=== PATIENT | female | born 1945 | race Caucasian/White ===

== ENCOUNTER → 2016-12-29 16:48 | Outpatient (CLI) | payer MEDICARE ==
[~2016-12-29 16:48] MED LIST: BAYER CHEWABLE81 MG PO; CARAFATE1 G PO; ESTRACE2 MG PO; FUROSEMIDE20 MG PO; LIBRAX CAPSULE1 CAP PO; LOPRESSOR25 MG PO; MINERAL OIL25 ML PO; MIRALAX17 GM PO; NEXIUM20 MG PO; POTASSIUM CHLO10 ME1 PO; STOOL SOFTENER100 M1 PO; ULTRAM50 MG PO
== END | disposition home or self-care (01) ==
LOC: D.MAMMO 11:00
DX: Z12.31 Encounter for screening mammogram for malignant neoplasm of breast (principal)

== ENCOUNTER → 2017-01-22 14:34 | Outpatient (CLI) | payer MEDICARE | END | disposition home or self-care (01) | LOC: D.MAMMO 09:00 | DX: R92.2 Inconclusive mammogram (principal) ==

== ENCOUNTER → 2017-03-02 10:32 | Outpatient (CLI) | payer MEDICARE | END | disposition home or self-care (01) | LOC: D.US 10:32 | DX: N64.4 Mastodynia (principal) ==

== ENCOUNTER 2019-01-23 08:00 | Outpatient (CLI) | payer MEDICARE | END 2019-01-23 23:59 | disposition home or self-care (01) | LOC: D.MAMMO 08:00 | PROVIDERS: ATTEND Family Medicine | DX: Z12.31 Encounter for screening mammogram for malignant neoplasm of breast (principal) ==

== ENCOUNTER 2019-02-21 08:00 | Outpatient (CLI) | payer MEDICARE | END 2019-02-21 12:00 | disposition home or self-care (01) | LOC: D.MAMMO 08:00 | PROVIDERS: ATTEND Family Medicine | DX: R92.8 Other abnormal and inconclusive findings on diagnostic imaging of breast (principal) ==

== ENCOUNTER → 2019-08-14 10:21 | Outpatient (CLI) | payer MEDICARE ==
[~2019-08-14 10:21] MED LIST changes: +BUPROPION HCL75 MG PO; +MOBIC7.5 MG PO; +TRAZODONE HCL150 MG PO
== END | disposition home or self-care (01) ==
LOC: D.HCCECHO 10:21
PROVIDERS: ATTEND Internal Medicine Cardiovascular Disease
DX: I25.10 Atherosclerotic heart disease of native coronary artery without angina pectoris (principal)

== ENCOUNTER 2019-08-16 18:45 | Observation (INO) | payer MEDICARE ==
[~2019-08-16] VITALS: Ht 170.2 cm; Wt 71.8 kg
--- NOTE | ~2019-08-16 | HEMODYNAMI ---
PATIENT:SANDOVAL STALLWORTH MEDICAL RECORD: [id number] : 47 LOCATION:[facility] D.[address] [facility]# [id number] ADMISSION DATE: 08/16/19 Generatedon:08/17/201913:37 Patient name: SANDOVAL STALLWORTH Patient #: [id number] : 1945 Date of study: 08/17/2019 Page: Of Hemodynamic Procedure Report Patient Data Patient Demographics Procedure consent was obtained First Name: SANDOVAL Gender: Female Last Name: BASIM : 1945 [facility] Initial: LEYLA Age: 74 year(s) Patient #: [id number] Race: Unknown SSN: [id number] Additional ID: [id number] Contact details Address: [address] [place] [address] [address] State: [place] City: [place] Zip code: [address] Past Medical History Allergies Allergen Reaction Date Comments Reported Other allergy 08/17/2019 Statin, Naproxen Admission Admission Data Admission Date: 08/16/2019 Admission Time: 20:13 Arrival Date: 08/17/2019 Arrival Time: 0:00 Admit Source: Other Insurance Payor: Medicare Room #: D.2115 [facility] #: [id number] Height (in.): 68 BSA: 1.85 (m2) Height (cm.): 172.72 BMI: 24.02 (kg/m2) Weight (lbs.): 158 Weight (kg.): 71.67 Lab Results Lab Result Date: 08/17/2019 Lab Result Time: 0:00 Biochemistry Name Units Result Min Max BUN mg/dl 13 --(--*-)-- 7 18 Creatinine mg/dl 0.8 --(-*--)-- 0.6 1.3 eGFR ml/min 73.69842 *-(----)-- 90 120 NONAFRICAN CBC Name Units Result Min Max Hemoglobin g/dl 12.2 *-(----)-- 13.5 17.5 Procedure Procedure Types Cath Procedure Diagnostic Procedure [facility] w/Coronaries Aortic Root Angiography Sedation Charges Moderate Sedation up to 30 minutes Peripheral Cath Diagnostic Procedure Abd/Extremity Aortagram Procedure Description Procedure Date Procedure Date: 08/17/2019 Procedure Start Time: 9:58 Procedure End Time: 10:18 Procedure Staff Name Function Montrell Guzman MD Performing Physician Geraldo Grace RT Monitor Mile Karimi RT Scrub Kia Hill RN Nurse Indication Fatigue Abnormal stress perfusion study with ischemia in the inferior wall Procedure Data Cath Procedure Fluoroscopy Diagnostic fluoroscopy Total fluoroscopy Time: 4 time: 4 min min Diagnostic fluoroscopy Total fluoroscopy dose: 429 dose: 429 mGy mGy Contrast Material Contrast Material Type Amount (ml) Isovue 300 84 Entry Location Entry Primary Successful Side Size Upsize Upsize Entry Closure Succes sful Closure Location (Fr) 1 (Fr) 2 (Fr) Remarks Device Remarks Femoral Right 5 Fr Exoseal artery Estimated blood loss: 10 ml Diagnostic catheters Device Type Used For End Catheter Placement MULTIPACK JL 4.0 5Fr Procedure catheter MULTIPACK 3DRC 5Fr Procedure catheter MULTIPACK Pigtail 5 Fr Ventriculography catheter Procedure Complications No complications Procedure Medications Medication Administration Route Dosage 0.9% NaCl I.V. 100 ml/hr Oxygen etCO2 Nasal cannula 2 l/min Lidocaine 2% added to field 20 Heparin Flush Bag added to field 2 bags (1000units/500ml NS) Versed I.V. 2 mg Fentanyl I.V. 50 mcg Fentanyl I.V. 50 mcg Hemodynamics Rest BSA: 1.85 (m2) HGB: 12.2 (g/dl) O2 Consumption: Estimated: 162.53 (ml/min) O2 Co nsumption indexed: Estimated:87.85 (ml/min/m) Heart Rate: 60 (bpm) Pressure Samples Time Site Value (mmHg) Purpose Heart Use Rate(bpm) 10:08 LV 120/0,9 Snapshot 60 10:09 LV 137/-3,22 Pullback 58 10:09 AO 146/45(85) Pullback 58 Gradients Valve Time Site 1 Site 2 Mean SEP/DFP Peak To Heart Use (mmHg) (sec/min) Peak Rate (mmHg) (bpm) Aortic 10:09 LV AO 0 21 0 58 137/-3,22 146/45(85) Calculations Valve P-P Mean Valve Index Valve Source Name Gradient Area Flow (cm2) Aortic 0 0 0 0 Snapshots Pre Cath Intra NCS Post Cath Vital Signs Time Heart Resp SPO2 etCO2 NIBP (mmHg) Rhythm Pain Sedation Rate (ipm) (%) (mmHg) Status Level (bpm) 9:45:58 57 22 97 36.8 144/78(122) SB 0 (11) 10(A) , No pain 9:50:16 61 13 97 14 122/69(92) NSR 0 (11) 10(A) , No pain 9:54:28 55 11 96 33 117/63(94) SB 0 (11) 10(A) , No pain 9:58:38 55 14 96 26.2 125/62(88) SB 0 (11) 10(A) , No pain 10:02:50 58 10 96 10.5 121/68(85) SB 0 (11) 9(A) , No pain 10:07:02 55 15 90 11.2 127/63(85) SB 0 (11) 9(A) , No pain 10:11:16 56 15 87 15.7 123/62(88) SB 0 (11) 10(A) , No pain 10:15:26 55 9 88 29.2 131/70(94) SB 0 (11) 10(A) , No pain Medications Time Medication Route Dose Verified Delivered Reason Notes Eff ectiveness by by 9:39:33 0.9% NaCl I.V. 100 Montrell Kia used for ml/hr Thomas Hill revenue enforcement agent 9:39:40 Oxygen etCO2 2 Montrell Kia used for Nasal l/min Thomas Hill procedure cannula RN 9:39:45 Lidocaine 2% added 20ml Montrell Montrell for local to vial Thomas Guzman MD anesthetic field 9:39:50 Heparin Flush added 2 Montrell Montrell used for Bag to bags Thomas Guzman MD procedure (1000units/500ml field NS) 9:57:29 Versed I.V. 2 mg Montrell Kia for Thomas Hill sedation RN 9:57:36 Fentanyl I.V. 50 Montrell Kia for mcg Thomas Hill sedation RN 10:01:18 Fentanyl I.V. 50 Montrell Kia for mcg Thomas Hill sedation club former Log Time Note 9:31:17 Informed consent obtained and on chart 9:33:20 Arrival Date: 08/17/2019 12:00:00 AM 9:33:37 Admit Source: Other 9:33:46 Insurance Payor : Medicare 9:34:17 Patient Height : 68 inches 9:34:21 Patient Weight : 158 lbs 9:34:53 Lab Result : eGFR NONAFRICAN 73.41282 ml/min 9:34:53 Lab Result : Hemoglobin 12.2 g/dl 9::53 Lab Result : BUN 13 mg/dl 9:34:53 Lab Result : Creatinine 0.8 mg/dl 9:35:55 Indication : Fatigue 9:36:19 Indication : Abnormal stress perfusion study with ischemia in the inferior wall 9:36:36 Procedure Status Urgent Heart Cath (IP). 9:36:40 Mile SOTELO(R) (CV) sent for patient. Start room use. 9:36:42 Time tracking: Regular hours (M-F 7:00 - 5:00) 9:36:47 Plan of Care:Hemodynamics will remain stable., Cardiac rhythm will remain stable., Comfort level will be maintained., Respiratory function will remain adequate., Patient/ family verbilizes understanding of procedure., Procedure tolerated without complication., Recovers from procedure without complications.. 9:36:53 Patient received from Med II to CCL 1 Alert and oriented. Tansferred to table in Supine position. 9:36:55 Correct patient and procedure confirmed by team. 9:36:55 Warm blankets applied, and michaela hugger turned on for patient comfort. 9:37:06 H&P Date Dictated: 08/10/2019 Within 30 days and on chart., H&P Addendum completed by physician on day of procedure. (MUST COMPLETE FOR ALL OUTPATIENTS). 9:37:08 Pre-procedure instructions explained to patient. 9:37:11 Family unavailable. 9:37:14 Patient NPO since Midnight. 9:37:43 Patient allergic to Other allergyStatin, Naproxen 9:37:46 Is the patient allergic to Iodine/contrast media? No. 9:37:49 Was the patient premedicated? Yes 9:37:50 Is patient on blood thinner?No 9:37:52 Patient diabetic? No. 9:38:00 Snore? Yes 9:38:02 Sleep apnea? No 9:38:08 Airway obstruction? Yes COPD 9:38:15 Dentures? Yes in tight 9:38:18 Patient pain scale 0/10 ?. 9:38:28 IV patent on arrival in left forearm with 0.9% NaCl at O. 9:38:31 Lab results completed and on chart. 9:38:47 Stress Test: yes; abnormal inferior wall 9:38:56 Right Radial & Right Groin area was prepped with chlora-prep and draped in sterile fashion 9:39:01 Sharps counted by scrub and verified by R.N. 9:39:01 Alarms reviewed by R. N. 9:39:33 0.9% NaCl 100 ml/hr I.V. was administered by Kia Hill RN; used for procedure; Verbal order read back and verified. 9:39:40 Oxygen 2 l/min etCO2 Nasal cannula was administered by Kia Hill RN; used for procedure; Verbal order read back and verified. 9:39:45 Lidocaine 2% 20ml vial added to field was administered by Montrell Guzman MD; for local anesthetic; Verbal order read back and verified. 9:39:50 Heparin Flush Bag (1000units/500ml NS) 2 bags added to field was administered by Montrell Guzman MD; used for procedure; Verbal order read back and verified. 9:44:58 Vital chart was started 9:56:46 Physician arrived 9:56:47 Final Timeout: patient, procedure, and site verified with staff and physician. All members of the team are in agreement. 9:56:47 --------ALL STOP TIME OUT------ 9:56:49 Right groin site verified by team. 9:56:54 Fire Safety Assessment: A--An alcohol-based skin anteseptic being used preoperatively., C--Open oxygen or nitrous oxide is being used., D--An ESU, laser, or fiber-optic light is being used. 9:57:04 Physical assessment completed. ASA score P 3 - A patient with severe systemic disease as per Montrell Guzman MD. 9:57:07 2) 60-89 Mildly reduced kidney function, and other findings (as for stage 1) point to kidney disease. 9:57:12 Maximum allowable contrast dose (3.7 X eGFR X 0.75)205 ml. 9:57:17 Sedation plan: IV Moderate Sedation Medication:Versed, Fentanyl 9:57:21 Use device set Femoral Dx 9:57:29 Versed 2 mg I.V. was administered by Kia Hill RN; for sedation; Verbal order read back and verified. 9:57:36 Fentanyl 50 mcg I.V. was administered by Kia Hill RN; for sedation; Verbal order read back and verified. 9:58:26 Full Disclosure recording started 9:58:26 Procedure started. 9:58:44 Local anesthetic to right femoral artery with Lidocaine 2% by Montrell Guzman MD.INITIAL ACCESS ONLY 9:58:45 ACIST Syringe (71445) opened to sterile field. 9:58:46 Medline Cath Pack ([id number]) opened to sterile field. 9:58:46 Bag Decanter (2002S) opened to sterile field. 9:58:48 ACIST Manifold (14790) opened to sterile field. 9:58:48 ACIST Hand Control (06321) opened to sterile field. 9:58:49 DIAGNOSTIC Multipack 5Fr catheter set (ZS9507) opened to sterile field. 9:58:51 SHEATH 5FR [place] (USC196) opened to sterile field. 9:58:52 EMERALD Guide Wire (836-356) opened to sterile field. 9:59:15 A 5 Fr sheath was inserted into the Right Femoral artery 10:01:18 Fentanyl 50 mcg I.V. was administered by Kia Hill RN; for sedation; Verbal order read back and verified. 10:02:46 A MULTIPACK JL 4.0 5Fr catheter was advanced over the wire and used for Procedure. 10:02:48 LCA angiography performed. 10:03:12 Catheter removed. 10:03:19 A MULTIPACK 3DRC 5Fr catheter was advanced over the wire and used for Procedure. 10:03:59 RCA angiography performed. 10:04:58 Catheter removed. 10:05:28 A MULTIPACK Pigtail 5 Fr catheter was advanced over the wire and used for Ventriculography. 10:05:40 Zero performed for pressure channel P1 10:06:01 Zero performed for pressure channel P1 10:08:37 LV hemodynamics recorded. 10:08:42 LV gram done using LEE 10:09:00 EF : 50 % 10:09:22 Aortic Root visualized 10:13:40 EXOSEAL 5Fr (EX500) opened to sterile field. 10:13:42 Tegaderm 4 x 4 (1626W) opened to sterile field. 10:13:50 Catheter removed. 10:14:04 Sheath removed intact; hemostasis achieved with Exoseal to the Right Femoral artery. 10:14:07 Procedure ended.(Physican Out) 10:14:18 Fluoroscopy time 04.00 minutes. 10:14:22 Fluoroscopy dose: 429 mGy 10:14:22 Flurop Dose total: 429 10:14:30 Dose Area Product 10375 mGy/cm. 10:14:35 Contrast amount:Isovue 300 84ml. 10:14:38 Maximum allowable dose exceeded? No. 10:14:39 Sharps counted by scrub and verified by R.N. 10:14:42 Insertion/operative site no bleeding no hematoma. 10:14:50 Post-procedure physical assessment completed. ASA score P 2 - A patient with mild systemic disease as per Montrell Guzman MD. 10:14:52 Post procedure rhythm: unchanged. 10:14:55 Estimated blood loss: 10 ml 10:14:57 Post procedure instruction explained to patient.Patient verbalizes understanding. 10:15:28 Procedure type changed to Cath procedure, Diagnostic procedure, LHC, LHC w/Coronaries, Aortic Root Angiography, Sedation Charges, Moderate Sedation up to 30 minutes, Peripheral Cath Diagnostic Procedure, Abd/Extremity, Aortagram 10:17:01 Procedure and supply charges have been captured, reviewed, submitted and are correct. 10:17:49 Procedure Complication : No complications 10:17:54 Vital chart was stopped 10:17:56 Operative report dictated upon procedure completion. 10:17:58 See physician's report for complete and final results. 10:18:05 Report given to Med II. 10:18:09 Patient transfered to Med II with Bed. 10:18:11 Full Disclosure recording stopped 10:18:11 Procedure ended. 10:18:16 End room use (Document Last) 10:18:42 End room use (Document Last) 10:19:52 End room use (Document Last) 13:34:48 LATE ENTRY 4.2.20. @ 1342-Abdominal Aortagram was performed @10:09:22- NOT AORTA ROOT GERALDO GRACE Device Usage Item Name Manufacture Quantity Catalog Hospital Part Current Minimal L ot# / Number Charge Number Stock Stock Serial# Code ACIST Acist 1 22018 [id number] [id number] 527698 20 Syringe Medical (91491) Systems Inc Bag Microtek 1 170900 38419 175046 5 Decanter Medical Inc. () Medline Medline 1 [id number] 577795 24131 803379 5 Cath Pack ([id number]) ACIST Hand Acist 1 91478 743086 810341 815692 5 Control Medical (06072) Systems Inc ACIST Acist 1 71134 295533 302054 239100 5 Manifold Medical (93738) Systems Inc DIAGNOSTIC Cardinal 1 PH5288 448719 80448 578720 30 Multipack Health 5Fr catheter set (JC4209) SHEATH 5FR Terumo 1 NIP505 554785 949399 465128 5 [place] (VQY901) EMERALD Cardinal 1 502455 725536 349841 609224 5 Guide Wire [facility] (502-053) MULTIPACK Cardinal 1 352718 5 JL 4.0 5Fr Health catheter MULTIPACK Cardinal 1 116105 5 3DRC 5Fr Health catheter MULTIPACK Cardinal 1 699825 5 Pigtail 5 Health Fr catheter EXOSEAL 5Fr Cardinal 1 EX500 776701 587847 897971 10 (EX500) Health Tegaderm 4 3M 1 1626W 217794 989849 461843 5 x 4 (1626W) Signature Audit [place] Stage Time Signature Unsigned Intra-Procedure 08/17/2019 Geraldo Grace 10:18:42 AM RT(R) Intra-Procedure 08/17/2019 Kia Hill 10:19:52 AM RN Intra-Procedure 08/17/2019 Montrell Guzman MD 10:20:19 AM 08/17/2019 1:33:38 PM Intra-Procedure 08/17/2019 Geraldo Grace 1:36:33 PM RT(R) Intra-Procedure 08/17/2019 Montrell Guzman MD 1:37:04 PM Signatures Performing Physician : Signature : Montrell Guzman MD Date : Time : Monitor : Geraldo Sanjay Signature : RT Date : Time : Nurse : Kia Sergio RN Signature : Date : Time : [place] [address] [place] [address]
[~2019-08-16 18:45] MED LIST changes: -BUPROPION HCL75 MG PO; -MOBIC7.5 MG PO; -TRAZODONE HCL150 MG PO
[2019-08-16] MEDS ORDERED: MOBIC7.5 MG PO (18:59)
[2019-08-16] MEDS ORDERED: TRAZODONE HCL150 MG PO (18:59)
[2019-08-16] MEDS ORDERED: BUPROPION HCL75 MG PO (19:00)
[2019-08-16 19:25] LABS: BASOPHILS 0.7 % (0-2); EOSINOPHILS 5.8 % (0-7); HEMATOCRIT 40.8 % (36.0-48.0); HEMOGLOBIN 13.7 g/dL (12-16); IMMATURE GRANULOCYTES 0.1 % (0-5); LYMPHOCYTES 36.9 % (15-50); MCH 34.9 pg (26.0-34.0); MCHC 33.6 g/dL (31.0-37.0); MCV 103.8 fL (80.0-100.0); MEAN PLATELET VOLUME 9.4 fL (7.4-10.4); MONOCYTES 8.1 % (2-11); NEUTROPHILS 48.4 % (40-80); RBC 3.93 10x6/uL (4.00-5.40); WBC 7.4 10x3/uL (4.8-10.8)
[2019-08-16 19:40] LABS: PLATELET COUNT 260 10x3/uL (130-400)
[2019-08-16 19:41] LABS: APTT 26.7 SECONDS (22.8-39.4); INR 0.91 (0.85-1.17); PROTIME 12.2 SECONDS (11.6-15.0)
[2019-08-16 19:45] LABS: CALC OSMOLALITY 278 mosm/kg (275-300); CALCIUM 8.7 mg/dL (8.5-10.1); CARBON DIOXIDE 27.8 mmol/L (21.0-32.0); CHLORIDE - SERUM 103 mmol/L (98-107); CREATININE - SERUM 0.9 mg/dL (0.6-1.3); GLUCOSE 104 mg/dL (74-106); POTASSIUM - SERUM 3.8 mmol/L (3.5-5.1); SODIUM 139 mmol/L (136-145); UREA NITROGEN 15 mg/dL (7-18); eGFR NON AFRICAN AMERICAN 65 mL/min (90-120)
[2019-08-16 19:47] VITALS: BP 149/99
[2019-08-16 19:57] LABS: ALBUMIN 3.4 g/dL (3.4-5.0); ALKALINE PHOSPHATASE 77 U/L (30-120); ALT (SGPT) 19 U/L (10-68); BILIRUBIN - TOTAL 0.29 mg/dL (0.2-1.3); CKMB 0.6 U/L (0.0-3.6); CREATINE KINASE 54 UL (21-215); MAGNESIUM - SERUM 2.1 mg/dL (1.8-2.4); PROTEIN - SERUM 7.2 g/dL (6.4-8.2); TROPONIN-I < 0.017 ng/mL (0.000-0.060)
[2019-08-16 23:04] LABS: CKMB 0.6 U/L (0.0-3.6); CREATINE KINASE 52 UL (21-215)
[2019-08-16 23:05] LABS: TROPONIN-I < 0.017 ng/mL (0.000-0.060)
[2019-08-17] VITALS (7 sets, daily range): BP systolic 117–161; BP diastolic 55–84; Ht 170.2 cm; Wt 71.8 kg
[2019-08-17 05:12] LABS: BASOPHILS 0.6 % (0-2); EOSINOPHILS 8.8 % (0-7); HEMOGLOBIN 12.2 g/dL (12-16); IMMATURE GRANULOCYTES 0.2 % (0-5); LYMPHOCYTES 41.5 % (15-50); MCH 34.5 pg (26.0-34.0); MCV 104.5 fL (80.0-100.0); MONOCYTES 10.7 % (2-11); NEUTROPHILS 38.2 % (40-80); PLATELET COUNT 236 10x3/uL (130-400); RBC 3.54 10x6/uL (4.00-5.40); RDW 12.1 % (11.5-14.5); WBC 6.6 10x3/uL (4.8-10.8)
[2019-08-17 05:43] LABS: ALBUMIN 2.9 g/dL (3.4-5.0); ALKALINE PHOSPHATASE 59 U/L (30-120); ALT (SGPT) 15 U/L (10-68); BILIRUBIN - TOTAL 0.38 mg/dL (0.2-1.3); CALC OSMOLALITY 276 mosm/kg (275-300); CALCIUM 7.9 mg/dL (8.5-10.1); CARBON DIOXIDE 26.2 mmol/L (21.0-32.0); CHLORIDE - SERUM 107 mmol/L (98-107); CKMB 0.4 U/L (0.0-3.6); CREATINE KINASE 41 UL (21-215); CREATININE - SERUM 0.8 mg/dL (0.6-1.3); GLUCOSE 79 mg/dL (74-106); MAGNESIUM - SERUM 1.8 mg/dL (1.8-2.4); PHOSPHOROUS 2.9 mg/dL (2.5-4.9); POTASSIUM - SERUM 3.5 mmol/L (3.5-5.1); PROTEIN - SERUM 5.8 g/dL (6.4-8.2); SODIUM 139 mmol/L (136-145); TROPONIN-I < 0.017 ng/mL (0.000-0.060); UREA NITROGEN 13 mg/dL (7-18); eGFR NON AFRICAN AMERICAN 74 mL/min (90-120)
[2019-08-17 07:20] LABS: CHOL - HDL RATIO 2.8 ratio (2.3-4.1); LDL-HDL RATIO 1.5 ratio (1.5-3.5)
--- NOTE | 2019-08-17 14:08 | MORECARE ---
CASE MANAGEMENT DISCHARGE SUMMARY PATIENT: SANDOVAL STALLWORTH LEYLA UNIT: [id number] ADM DATE: 08/16/19 AGE: 74 : 47 SEX: F ROOM/BED: D.8513 AUTHOR: JOAQUIN PINEDA PHYSICIAN: REFERRING PHYSICIAN: SALLIE HOGAN MD DATE OF SERVICE: 08/17/19 Discharge Plan Patient Name: SANDOVAL STALLWORTH Facility: [facility]:[place] : 1945 Planned Disposition: Home Anticipated Discharge Date: 08/17/19 Discharge Date: Expected LOS: 1 Initial Reviewer: [email or web address] Initial Review Date: 08/17/2019 Generated: 08/17/19 3:07 pm Patient Name: SANDOVAL STALLWORTH Page [phone] at 1408 All edits/amendments must be made on the electronic document DICTATION DATE: 08/17/19 140 PANTOGRAPH MACHINE SET UP OPERATOR: LYNNE 08/17/19 1407 RPT#: [id number] DC DATE: STATUS: ADM [facility] [address] [place] [address] END OF REPORT
== END 2019-08-17 14:15 | disposition home or self-care (01) ==
LOC: D.ER 18:45 → D.M2 20:13 → OBSVTIME 20:13 → D.M2 08-17 14:15
PROVIDERS: Family Medicine; Internal Medicine Cardiovascular Disease; ADMIT Family Medicine; ATTEND Family Medicine
DX: I20.0 Unstable angina (principal); R55 Syncope and collapse; R94.30 Abnormal result of cardiovascular function study, unspecified; M19.90 Unspecified osteoarthritis, unspecified site; J44.9 Chronic obstructive pulmonary disease, unspecified; F41.9 Anxiety disorder, unspecified; D75.89 Other specified diseases of blood and blood-forming organs; F17.200 Nicotine dependence, unspecified, uncomplicated

== ENCOUNTER → 2019-12-01 09:47 | Outpatient (CLI) | payer MEDICARE ==
[2019-08-17 01:05] VITALS: BMI 24.8
[~2019-12-01 09:47] MED LIST changes: +BUPROPION HCL75 MG PO; +MOBIC7.5 MG PO; +TRAZODONE HCL150 MG PO
== END | disposition home or self-care (01) ==
LOC: D.CT 09:47
PROVIDERS: ATTEND Internal Medicine Cardiovascular Disease
DX: R55 Syncope and collapse (principal); R42 Dizziness and giddiness

== ENCOUNTER 2020-02-09 19:11 | Emergency (ER) | payer MEDICARE ==
[~2020-02-09] VITALS: Ht 170.2 cm; Wt 72.7 kg
[2020-02-09 19:20] VITALS: Ht 170.2 cm; Wt 72.7 kg
[2020-02-09 19:56] LABS: BASOPHILS 0.5 % (0-2); EOSINOPHILS 8.8 % (0-7); HEMATOCRIT 35.6 % (36.0-48.0); IMMATURE GRANULOCYTES 0.2 % (0-5); LYMPHOCYTES 38.4 % (15-50); MCH 34.3 pg (26.0-34.0); MCHC 33.7 g/dL (31.0-37.0); MCV 101.7 fL (80.0-100.0); MEAN PLATELET VOLUME 9.6 fL (7.4-10.4); MONOCYTES 9.5 % (2-11); NEUTROPHILS 42.6 % (40-80); PLATELET COUNT 207 10x3/uL (130-400)
[2020-02-09 20:04] LABS: APTT 25.3 SECONDS (22.8-39.4); INR 0.9 (0.85-1.17); PROTIME 12.1 SECONDS (11.6-15.0)
[2020-02-09 20:06] LABS: CALC OSMOLALITY 276 mosm/kg (275-300); CALCIUM 8.5 mg/dL (8.5-10.1); CARBON DIOXIDE 26.3 mmol/L (21.0-32.0); CHLORIDE - SERUM 105 mmol/L (98-107); CREATININE - SERUM 1.4 mg/dL (0.6-1.3); POTASSIUM - SERUM 3.4 mmol/L (3.5-5.1); SODIUM 136 mmol/L (136-145); UREA NITROGEN 23 mg/dL (7-18); eGFR NON AFRICAN AMERICAN 39 mL/min (90-120)
[2020-02-09 20:08] LABS: GLUCOSE 123 mg/dL (74-106)
[2020-02-09 20:22] LABS: ALKALINE PHOSPHATASE 66 U/L (30-120); ALT (SGPT) 9 U/L (10-68); BILIRUBIN - TOTAL 0.18 mg/dL (0.2-1.3); CKMB 1.8 U/L (0.0-3.6); CREATINE KINASE 45 UL (21-215); MAGNESIUM - SERUM 1.8 mg/dL (1.8-2.4); PROTEIN - SERUM 6.3 g/dL (6.4-8.2)
[2020-02-09 20:32] LABS: TROPONIN-I < 0.017 ng/mL (0.000-0.060)
[2020-02-09] MEDS ORDERED: PROTONIX40 MG PO ×2 (21:08→21:09)
[2020-02-10 02:47] VITALS: BP 117/72
== END 2020-02-09 21:14 | disposition home or self-care (01) ==
LOC: D.ER 19:11
PROVIDERS: Emergency Medicine
DX: K22.4 Dyskinesia of esophagus (principal); J44.9 Chronic obstructive pulmonary disease, unspecified; Z72.0 Tobacco use; R07.9 Chest pain, unspecified; R53.83 Other fatigue; M79.602 Pain in left arm

== ENCOUNTER → 2020-10-18 11:19 | Outpatient (CLI) | payer MEDICARE ==
[2020-02-09 19:20] VITALS: BMI 25.1
[~2020-10-18 11:19] MED LIST changes: +PROTONIX40 MG PO
== END | disposition home or self-care (01) ==
LOC: D.LAB 11:19
PROVIDERS: ATTEND Internal Medicine Pulmonary Disease
DX: Z11.52 Encounter for screening for COVID-19 (principal)

== ENCOUNTER → 2020-10-24 10:35 | Outpatient (CLI) | payer MEDICARE ==
[2020-02-09 19:20] VITALS: BMI 25.1
[2020-10-24 12:21] LABS: BASOPHILS 0.9 % (0-2); EOSINOPHILS 3.2 % (0-7); HEMATOCRIT 36.1 % (36.0-48.0); HEMOGLOBIN 12.3 g/dL (12-16); MCH 34.3 pg (26.0-34.0); MCHC 34.1 g/dL (31.0-37.0); MCV 100.7 fL (80.0-100.0); MEAN PLATELET VOLUME 7.4 fL (7.4-10.4); MONOCYTES 7.4 % (2-11); NEUTROPHILS 60.5 % (40-80); PLATELET COUNT 192 10x3/uL (130-400); RBC 3.59 10x6/uL (4.00-5.40); RDW 12.6 % (11.5-14.5); WBC 6.7 10x3/uL (4.8-10.8)
== END | disposition home or self-care (01) ==
LOC: D.LAB 08:00 → D.RT 11:00
PROVIDERS: ATTEND Internal Medicine Pulmonary Disease
DX: J44.9 Chronic obstructive pulmonary disease, unspecified (principal)